=== PATIENT | male | born 1950 | race Caucasian/White ===

== ENCOUNTER 2018-03-15 10:27 | Observation (INO) | payer MEDICARE, OTHER ==
[2018-03-15] MEDS: ASPIRIN 325 MG TAB PO (10:57)
[2018-03-15 11:03] LABS: ADD MAN DIFF? NO
[2018-03-15 11:07] LABS: WHITE BLOOD COUNT 8.9 10^3/ul (4.8-10.8)
[2018-03-15 11:07] LABS: ABNORMAL IP MESSAGE 1; BASOPHIL # 0.1 10^3/ul (0.0-0.1); BASOPHILS % 0.6 % (0.0-2.0); EOSINOPHILS # 0.1 10^3/ul (0.0-0.5); EOSINOPHILS % 1.5 % (0.0-7.0); HEMATOCRIT 34.4 % (42.0-52.0); HEMOGLOBIN 9.9 g/dl (14.0-18.0); LYMPHOCYTES # 0.7 10^3/ul (0.8-2.9); LYMPHOCYTES % 8.1 % (15.0-51.0); MEAN CORPUSCULAR HEMOGLOBIN 21.9 pg (29.0-33.0); MEAN CORPUSCULAR HGB CONC 28.8 g/dl (32.0-37.0); MEAN CORPUSCULAR VOLUME 76.1 fl (82.0-101.0); MEAN PLATELET VOLUME 9.8 fl (7.4-10.4); MONOCYTE # 0.9 10^3/ul (0.3-0.9); NEUTROPHIL # 7.1 10^3/ul (1.6-7.5); NEUTROPHILS % 79.5 % (39.0-77.0); PLATELET COUNT 211 10^3/UL (140-415); POSITIVE DIFF @See below; RED BLOOD COUNT 4.52 10^6/ul (4.70-6.10)
[2018-03-15 11:09] LABS: ADD UMIC NO; UR ASCORBIC ACID NEGATIVE (NEGATIVE); UR BILIRUBIN (Dip) NEGATIVE (NEGATIVE); UR BLOOD (Dip) NEGATIVE (NEGATIVE); UR CLARITY CLEAR (CLEAR); UR COLOR STRAW (YELLOW); UR GLUCOSE (Dip) NEGATIVE (NEGATIVE); UR KETONES (Dip) NEGATIVE (NEGATIVE); UR LEUKOCYTE ESTERASE (Dip) NEGATIVE Leu/ul (NEGATIVE); UR NITRITE (Dip) NEGATIVE (NEGATIVE); UR SPECIFIC GRAVITY (Dip) 1.005 (1.003-1.030); UR TOTAL PROTEIN (Dip) NEGATIVE (NEGATIVE); UR UROBILINOGEN (Dip) NEGATIVE (NEGATIVE)
[2018-03-15 11:28] LABS: ALANINE AMINOTRANSFERASE 17 IU/L (13-69); ALBUMIN 3.9 g/dl (3.3-4.9); ALBUMIN/GLOBULIN RATIO 1.18; ALKALINE PHOSPHATASE 77 IU/L (42-121); AMYLASE 138 U/L (11-123); ANION GAP 16 (8-16); ASPARTATE AMINO TRANSFERASE 19 IU/L (15-46); BILIRUBIN,INDIRECT 1.5 mg/dl (0-1.1); BILIRUBIN,TOTAL 1.5 mg/dl (0.2-1.3); BLOOD UREA NITROGEN 23 mg/dl (7-20); CALCIUM 8.6 mg/dl (8.4-10.2); CARBON DIOXIDE 26 mmol/L (21-31); CHLORIDE 104 mmol/L (97-110); CREATINE KINASE 44 IU/L (23-200); CREATININE 1.87 mg/dl (0.61-1.24); GLUCOSE 103 mg/dl (70-220); LIPASE 105 U/L (23-300); POTASSIUM 4.2 mmol/L (3.5-5.1); PROTIME 14.4 Sec (11.9-14.9); PT RATIO 1.1; SODIUM 142 mmol/L (135-144); TOTAL PROTEIN 7.2 g/dl (6.1-8.1)
[2018-03-15 11:29] LABS: PARTIAL THROMBOPLASTIN TIME 39.8 Sec (25.0-35.0)
[2018-03-15 11:39] LABS: CK INDEX 1.7; CK-MB 0.76 ng/ml (0.0-2.4); TROPONIN-I 0.027 ng/ml (0.000-0.120)
[2018-03-15] MEDS ORDERED: HYDROCODONE/APAP (5/325) TAB PO (12:00)
[2018-03-15] MEDS ORDERED: NACL 0.9% 3 ML SYG IV (12:00)
[2018-03-15] MEDS ORDERED: DOCUSATE SODIUM 100 MG CAP PO (12:00)
[2018-03-15] MEDS ORDERED: BISACODYL (EC) 5 MG TAB PO (12:00)
[2018-03-15] MEDS ORDERED: ONDANSETRON 4 MG INJ IV (12:00)
[2018-03-15] MEDS ORDERED: ACETAMINOPHEN 325 MG TAB PO (12:00)
[2018-03-15] MEDS ORDERED: ACETAMINOPHEN 500 MG PO (12:00)
[2018-03-15] MEDS ORDERED: MAGNESIUM HYDROXIDE 30ML CUP PO (12:00)
[2018-03-15] MEDS: IPRATROPIUM (NEB) 0.5 MG/2.5 ML AMP NEB (12:26)
[2018-03-15] MEDS: ALBUTEROL 0.083% (NEB) 2.5 MG/3 ML AMP NEB (12:26)
[2018-03-15 12:46] LABS: B-TYPE NATRIURETIC PEPTIDE 8370 PG/ML (0-125)
[2018-03-15] MEDS: FUROSEMIDE 40 MG INJ IV (12:47)
[2018-03-15] MEDS: ACETAMINOPHEN 325 MG TAB PO (16:26)
[2018-03-15] MEDS: BUMETANIDE 1 MG INJ IV (17:36)
[2018-03-15 19:57] LABS: CREATINE KINASE 40 IU/L (23-200)
[2018-03-15] MEDS: morphine 2 MG INJ IV (20:07)
[2018-03-15] MEDS: ATORVASTATIN 40 MG TAB PO (20:07)
[2018-03-15 20:08] LABS: CK INDEX 1.9; CK-MB 0.75 ng/ml (0.0-2.4)
[2018-03-15 23:22] LABS: CREATINE KINASE 37 IU/L (23-200)
[2018-03-15 23:34] LABS: CK-MB 0.75 ng/ml (0.0-2.4); TROPONIN-I 0.025 ng/ml (0.000-0.120)
[2018-03-16] MEDS: BUMETANIDE 1 MG INJ IV (05:31)
[2018-03-16] MEDS: PANTOPRAZOLE (EC) 40 MG TAB PO (05:31)
[2018-03-16 05:51] LABS: ADD MAN DIFF? NO
[2018-03-16 05:54] LABS: WHITE BLOOD COUNT 6.3 10^3/ul (4.8-10.8)
[2018-03-16 05:54] LABS: ABNORMAL IP MESSAGE 1; BASOPHIL # 0.1 10^3/ul (0.0-0.1); BASOPHILS % 0.8 % (0.0-2.0); EOSINOPHILS # 0.2 10^3/ul (0.0-0.5); EOSINOPHILS % 2.5 % (0.0-7.0); HEMATOCRIT 34.5 % (42.0-52.0); HEMOGLOBIN 9.9 g/dl (14.0-18.0); LYMPHOCYTES # 0.8 10^3/ul (0.8-2.9); LYMPHOCYTES % 12.7 % (15.0-51.0); MEAN CORPUSCULAR HEMOGLOBIN 21.7 pg (29.0-33.0); MEAN CORPUSCULAR HGB CONC 28.7 g/dl (32.0-37.0); MEAN CORPUSCULAR VOLUME 75.7 fl (82.0-101.0); MEAN PLATELET VOLUME 9.7 fl (7.4-10.4); MONOCYTE # 0.7 10^3/ul (0.3-0.9); MONOCYTES % 10.9 % (0.0-11.0); NEUTROPHIL # 4.6 10^3/ul (1.6-7.5); NEUTROPHILS % 72.9 % (39.0-77.0); PLATELET COUNT 191 10^3/UL (140-415); POSITIVE DIFF @See below; RED BLOOD COUNT 4.56 10^6/ul (4.70-6.10); RED CELL DISTRIBUTION WIDTH 17.3 % (11.5-14.5)
[2018-03-16 06:23] LABS: ANION GAP 13 (8-16); BLOOD UREA NITROGEN 23 mg/dl (7-20); CALCIUM 8.3 mg/dl (8.4-10.2); CARBON DIOXIDE 29 mmol/L (21-31); CHLORIDE 102 mmol/L (97-110); CHOLESTEROL 152 mg/dl (100-200); CREATININE 1.69 mg/dl (0.61-1.24); GLUCOSE 95 mg/dl (70-220); HDL CHOLESTEROL 25 mg/dl (30-78); LDL CHOLESTEROL,CALCULATED 111 mg/dl; MAGNESIUM 2.1 mg/dl (1.7-2.5); SODIUM 140 mmol/L (135-144); TRIGLYCERIDES 79 mg/dl (0-149)
[2018-03-16 08:26] LABS: HEMOGLOBIN A1C 6.1 % (0-5.9)
[2018-03-16] MEDS ORDERED: BUMETANIDE 1 MG TAB PO (09:00)
[2018-03-16] MEDS: ACETAMINOPHEN 325 MG TAB PO (10:11)
[2018-03-16] MEDS: ASPIRIN 81 MG TAB PO (10:12)
[2018-03-16] MEDS: GABAPENTIN 300 MG CAP PO (10:13)
[2018-03-16] MEDS: ISOSORBIDE MONONITRATE(SR)60 MG TAB PO (10:14)
[2018-03-16] MEDS: DUTASTERIDE 0.5 MG CAP PO (10:19)
[2018-03-16] MEDS: ENOXAPARIN 40 MG/0.4 ML SYG SC (10:19)
[2018-03-16] MEDS: LOSARTAN 50 MG TAB PO (13:19)
== END 2018-03-16 16:28 | disposition home or self-care (01) ==
LOC: E/R 10:27 → MS1 03-16 16:06 → MS3 03-16 16:21
PROVIDERS: Internal Medicine
DX: I50.23 Acute on chronic systolic (congestive) heart failure (principal); I25.10 Atherosclerotic heart disease of native coronary artery without angina pectoris; Z95.1 Presence of aortocoronary bypass graft; N18.9 Chronic kidney disease, unspecified
CPT/HCPCS: 36415; 71045; 76775; 80048; 80053; 80061; 81003; 82150; 82550; 82553; 83036; 83690; 83735; 83880; 84484; 85025; 85610; 85730; 87040; 87086; 93005; 94664; 99285-25

== ENCOUNTER 2018-04-05 21:49 | Observation (INO) | payer MEDICARE, OTHER ==
[2018-04-05 22:44] LABS: ADD MAN DIFF? NO
[2018-04-05 22:46] LABS: ABNORMAL IP MESSAGE 1; BASOPHIL # 0.1 10^3/ul (0.0-0.1); BASOPHILS % 1.1 % (0.0-2.0); EOSINOPHILS # 0.2 10^3/ul (0.0-0.5); EOSINOPHILS % 4.1 % (0.0-7.0); HEMATOCRIT 32.3 % (42.0-52.0); HEMOGLOBIN 9.2 g/dl (14.0-18.0); LYMPHOCYTES % 17.7 % (15.0-51.0); MEAN CORPUSCULAR HEMOGLOBIN 21.4 pg (29.0-33.0); MEAN CORPUSCULAR HGB CONC 28.5 g/dl (32.0-37.0); MEAN CORPUSCULAR VOLUME 75.1 fl (82.0-101.0); MEAN PLATELET VOLUME 9.6 fl (7.4-10.4); MONOCYTE # 0.7 10^3/ul (0.3-0.9); MONOCYTES % 12.3 % (0.0-11.0); NEUTROPHIL # 3.6 10^3/ul (1.6-7.5); NEUTROPHILS % 64.4 % (39.0-77.0); PLATELET COUNT 238 10^3/UL (140-415); POSITIVE DIFF @See below; RED CELL DISTRIBUTION WIDTH 17.2 % (11.5-14.5)
[2018-04-05 22:46] LABS: WHITE BLOOD COUNT 5.6 10^3/ul (4.8-10.8)
[2018-04-05 23:11] LABS: ANION GAP 12 (8-16); BLOOD UREA NITROGEN 21 mg/dl (7-20); CALCIUM 8.4 mg/dl (8.4-10.2); CARBON DIOXIDE 30 mmol/L (21-31); CHLORIDE 102 mmol/L (97-110); CREATININE 2.13 mg/dl (0.61-1.24); GLUCOSE 114 mg/dl (70-220); MAGNESIUM 2.2 mg/dl (1.7-2.5); SODIUM 140 mmol/L (135-144)
[2018-04-05 23:22] LABS: B-TYPE NATRIURETIC PEPTIDE 3860 PG/ML (0-125); TROPONIN-I 0.018 ng/ml (0.000-0.120)
[2018-04-06] MEDS: FUROSEMIDE 40 MG INJ IV (00:19)
[2018-04-06] MEDS ORDERED: ALBUTEROL/IPRATROPIUM (NEB) 3 ML AMP HHN (01:00)
[2018-04-06] MEDS ORDERED: NACL 0.9% 3 ML SYG IV (01:00)
[2018-04-06] MEDS ORDERED: ACETAMINOPHEN 325 MG TAB PO (01:00)
[2018-04-06] MEDS ORDERED: ONDANSETRON 4 MG INJ IV (01:00)
[2018-04-06] MEDS: NITROGLYCERIN (SL) 0.4 MG TAB SL ×3 (01:04→01:23)
[2018-04-06] MEDS: ZOLPIDEM 5 MG TAB PO (01:48)
[2018-04-06] MEDS: PANTOPRAZOLE (EC) 40 MG TAB PO ×2 (05:33→05:40)
[2018-04-06] MEDS: FUROSEMIDE 40 MG TAB PO ×2 (05:33→05:40)
[2018-04-06 06:55] LABS: ADD MAN DIFF? NO
[2018-04-06 07:01] LABS: ABNORMAL IP MESSAGE 1; BASOPHIL # 0.1 10^3/ul (0.0-0.1); BASOPHILS % 0.9 % (0.0-2.0); EOSINOPHILS # 0.3 10^3/ul (0.0-0.5); EOSINOPHILS % 4.6 % (0.0-7.0); HEMATOCRIT 33.6 % (42.0-52.0); HEMOGLOBIN 9.6 g/dl (14.0-18.0); LYMPHOCYTES # 0.9 10^3/ul (0.8-2.9); LYMPHOCYTES % 16.1 % (15.0-51.0); MEAN CORPUSCULAR HEMOGLOBIN 21.7 pg (29.0-33.0); MEAN CORPUSCULAR HGB CONC 28.6 g/dl (32.0-37.0); MEAN PLATELET VOLUME 9.5 fl (7.4-10.4); MONOCYTE # 0.6 10^3/ul (0.3-0.9); MONOCYTES % 11.5 % (0.0-11.0); NEUTROPHIL # 3.6 10^3/ul (1.6-7.5); NEUTROPHILS % 66.3 % (39.0-77.0); PLATELET COUNT 211 10^3/UL (140-415); POSITIVE DIFF @See below; RED BLOOD COUNT 4.42 10^6/ul (4.70-6.10); RED CELL DISTRIBUTION WIDTH 17.4 % (11.5-14.5)
[2018-04-06 07:01] LABS: WHITE BLOOD COUNT 5.4 10^3/ul (4.8-10.8)
[2018-04-06 07:25] LABS: CREATINE KINASE 46 IU/L (23-200)
[2018-04-06 07:36] LABS: CK INDEX 1.5; TROPONIN-I 0.027 ng/ml (0.000-0.120)
[2018-04-06 07:39] LABS: ALANINE AMINOTRANSFERASE 22 IU/L (13-69); ALBUMIN 3.6 g/dl (3.3-4.9); ALBUMIN/GLOBULIN RATIO 1.16; ALKALINE PHOSPHATASE 93 IU/L (42-121); ANION GAP 13 (8-16); ASPARTATE AMINO TRANSFERASE 17 IU/L (15-46); BLOOD UREA NITROGEN 23 mg/dl (7-20); CALCIUM 8.3 mg/dl (8.4-10.2); CARBON DIOXIDE 29 mmol/L (21-31); CHLORIDE 105 mmol/L (97-110); CREATININE 2.13 mg/dl (0.61-1.24); GLUCOSE 105 mg/dl (70-220); MAGNESIUM 2.2 mg/dl (1.7-2.5); POTASSIUM 4.2 mmol/L (3.5-5.1); SODIUM 143 mmol/L (135-144); TOTAL PROTEIN 6.7 g/dl (6.1-8.1)
[2018-04-06] MEDS: GABAPENTIN 300 MG CAP PO (08:13)
[2018-04-06] MEDS: ISOSORBIDE MONONITRATE(SR)60 MG TAB PO (08:14)
[2018-04-06] MEDS: ASPIRIN (EC) 81 MG TAB PO (08:14)
[2018-04-06] MEDS: LOSARTAN 50 MG TAB PO (08:15)
[2018-04-06] MEDS: DUTASTERIDE 0.5 MG CAP PO (08:16)
[2018-04-06] MEDS: HEPARIN 5,000 UNIT/0.5 ML VIAL SC (08:18)
[2018-04-06] MEDS ORDERED: NON-FORMULARY/PATIENT OWN MED (Omeprazole* 20 MG) PO (09:00)
[2018-04-06] MEDS ORDERED: NON-FORMULARY/PATIENT OWN MED (Isosorbide Mononitrate* 60 MG) PO (09:00)
[2018-04-06] MEDS ORDERED: NON-FORMULARY/PATIENT OWN MED (Carvedilol* 6.25 MG) PO (09:00)
[2018-04-06] MEDS ORDERED: ATORVASTATIN 40 MG TAB PO (21:00)
== END 2018-04-06 10:10 | disposition left against medical advice (07) ==
LOC: TEL 23:34 → E/R 21:49
DX: R07.9 Chest pain, unspecified (principal); I25.10 Atherosclerotic heart disease of native coronary artery without angina pectoris; Z95.1 Presence of aortocoronary bypass graft; Z95.5 Presence of coronary angioplasty implant and graft; I42.9 Cardiomyopathy, unspecified; N18.9 Chronic kidney disease, unspecified; D50.9 Iron deficiency anemia, unspecified; N40.0 Benign prostatic hyperplasia without lower urinary tract symptoms
CPT/HCPCS: 36415; 71045; 80048; 80053; 82550; 82553; 83735; 83880; 84484; 85025; 93005; 99285-25; G0378

== ENCOUNTER 2018-10-13 09:09 | Emergency (ER) | payer MEDICARE, OTHER ==
[2018-10-13] MEDS: FUROSEMIDE 100 MG INJ IV (09:51)
[2018-10-13 10:08] LABS: ADD MAN DIFF? NO
[2018-10-13 10:10] LABS: ABNORMAL IP MESSAGE 1; BASOPHILS % 0.4 % (0.0-2.0); EOSINOPHILS # 0.1 10^3/ul (0.0-0.5); EOSINOPHILS % 0.5 % (0.0-7.0); HEMATOCRIT 44.1 % (42.0-52.0); HEMOGLOBIN 13.6 g/dl (14.0-18.0); LYMPHOCYTES # 0.5 10^3/ul (0.8-2.9); LYMPHOCYTES % 4.8 % (15.0-51.0); MEAN CORPUSCULAR HEMOGLOBIN 25.1 pg (29.0-33.0); MEAN CORPUSCULAR HGB CONC 30.8 g/dl (32.0-37.0); MEAN CORPUSCULAR VOLUME 81.4 fl (82.0-101.0); NEUTROPHILS % 83.8 % (39.0-77.0); PLATELET COUNT 194 10^3/UL (140-415); POSITIVE DIFF @See below; RED BLOOD COUNT 5.42 10^6/ul (4.70-6.10)
[2018-10-13 10:10] LABS: WHITE BLOOD COUNT 9.6 10^3/ul (4.8-10.8)
[2018-10-13] MEDS: ASPIRIN 325 MG TAB PO (10:10)
[2018-10-13] MEDS: ACETAMINOPHEN 325 MG TAB PO (10:10)
[2018-10-13] MEDS: NITROGLYCERIN 2% 1 GM OINT PKT TD (10:11)
[2018-10-13 10:16] LABS: ALANINE AMINOTRANSFERASE 27 IU/L (13-69); ALBUMIN 4.9 g/dl (3.3-4.9); ALBUMIN/GLOBULIN RATIO 1.13; ALKALINE PHOSPHATASE 89 IU/L (42-121); ANION GAP 14 (5-13); ASPARTATE AMINO TRANSFERASE 27 IU/L (15-46); BILIRUBIN,INDIRECT 1.2 mg/dl (0-1.1); BILIRUBIN,TOTAL 1.2 mg/dl (0.2-1.3); BLOOD UREA NITROGEN 20 mg/dl (7-20); CALCIUM 9.8 mg/dl (8.4-10.2); CARBON DIOXIDE 31 mmol/L (21-31); CHLORIDE 100 mmol/L (97-110); CREATININE 1.95 mg/dl (0.61-1.24); Estimated GFR 35 mL/min (>60); GLUCOSE 93 mg/dl (70-220); SODIUM 145 mmol/L (135-144); TOTAL PROTEIN 9.2 g/dl (6.1-8.1)
[2018-10-13 10:29] LABS: B-TYPE NATRIURETIC PEPTIDE 6740 PG/ML (0-125); TROPONIN-I 0.024 ng/ml (0.000-0.120)
[2018-10-13] MEDS: ALBUTEROL 0.5% (NEB) 2.5 MG/0.5 ML AMP INH (10:33)
[2018-10-13 10:38] LABS: ADD UMIC YES; UR ASCORBIC ACID NEGATIVE (NEGATIVE); UR BILIRUBIN (Dip) NEGATIVE (NEGATIVE); UR BLOOD (Dip) 1+ mg/dL (NEGATIVE); UR CLARITY CLEAR (CLEAR); UR COLOR STRAW (YELLOW); UR GLUCOSE (Dip) NEGATIVE (NEGATIVE); UR KETONES (Dip) NEGATIVE (NEGATIVE); UR LEUKOCYTE ESTERASE (Dip) NEGATIVE Leu/ul (NEGATIVE); UR NITRITE (Dip) NEGATIVE (NEGATIVE); UR RBC 3 /HPF (0-5); UR SPECIFIC GRAVITY (Dip) 1.005 (1.003-1.030); UR TOTAL PROTEIN (Dip) NEGATIVE (NEGATIVE); UR UROBILINOGEN (Dip) NEGATIVE (NEGATIVE); UR WBC 0 /HPF (0-5)
== END 2018-10-13 12:00 | disposition home or self-care (01) ==
LOC: E/R 09:09
DX: R06.02 Shortness of breath (principal); I50.42 Chronic combined systolic (congestive) and diastolic (congestive) heart failure; I25.10 Atherosclerotic heart disease of native coronary artery without angina pectoris; I13.0 Hypertensive heart and chronic kidney disease with heart failure and stage 1 through stage 4 chronic kidney disease, or unspecified chronic kidney disease; N18.9 Chronic kidney disease, unspecified; Z79.82 Long term (current) use of aspirin; Z95.0 Presence of cardiac pacemaker; Z95.1 Presence of aortocoronary bypass graft
CPT/HCPCS: 36415; 71045; 80053; 81001; 83880; 84484; 85025; 93005; 94644; 99285-25

== ENCOUNTER 2019-02-18 20:34 | Emergency (ER) | payer MEDICARE, OTHER ==
[2019-02-18 21:06] LABS: ADD MAN DIFF? NO
[2019-02-18 21:08] LABS: WHITE BLOOD COUNT 9.5 10^3/ul (4.8-10.8)
[2019-02-18 21:08] LABS: BASOPHILS % 0.4 % (0.0-2.0); EOSINOPHILS # 0.3 10^3/ul (0.0-0.5); EOSINOPHILS % 2.6 % (0.0-7.0); HEMATOCRIT 35.8 % (42.0-52.0); HEMOGLOBIN 10.8 g/dl (14.0-18.0); LYMPHOCYTES # 0.9 10^3/ul (0.8-2.9); MEAN CORPUSCULAR HEMOGLOBIN 24.2 pg (29.0-33.0); MEAN CORPUSCULAR HGB CONC 30.2 g/dl (32.0-37.0); MEAN CORPUSCULAR VOLUME 80.3 fl (82.0-101.0); MONOCYTE # 0.9 10^3/ul (0.3-0.9); MONOCYTES % 9.4 % (0.0-11.0); NEUTROPHIL # 7.4 10^3/ul (1.6-7.5); NEUTROPHILS % 78.1 % (39.0-77.0); PLATELET COUNT 242 10^3/UL (140-415); RED BLOOD COUNT 4.46 10^6/ul (4.70-6.10)
[2019-02-18 21:24] LABS: ANION GAP 10 (5-13); BLOOD UREA NITROGEN 17 mg/dl (7-20); CALCIUM 8.7 mg/dl (8.4-10.2); CARBON DIOXIDE 25 mmol/L (21-31); CHLORIDE 104 mmol/L (97-110); CREATININE 1.97 mg/dl (0.61-1.24); Estimated GFR 34 mL/min (>60); GLUCOSE 125 mg/dl (70-220); SODIUM 139 mmol/L (135-144)
[2019-02-18] MEDS: PROMETHAZINE/CODEINE 5ML CUP PO (21:24)
[2019-02-18 21:29] LABS: INR 1.05; PROTIME 13.8 Sec (11.9-14.9); PT RATIO 1.1
[2019-02-18 21:30] LABS: PARTIAL THROMBOPLASTIN TIME 46.2 Sec (23.0-35.0)
[2019-02-18 21:36] LABS: B-TYPE NATRIURETIC PEPTIDE 8380 PG/ML (0-125); TROPONIN-I 0.022 ng/ml (0.000-0.120)
== END 2019-02-18 22:55 | disposition home or self-care (01) ==
LOC: E/R 22:55
DX: R06.02 Shortness of breath (principal); I11.0 Hypertensive heart disease with heart failure; I50.9 Heart failure, unspecified; I25.10 Atherosclerotic heart disease of native coronary artery without angina pectoris; R05 Cough; Z79.82 Long term (current) use of aspirin; Z95.0 Presence of cardiac pacemaker; Z95.1 Presence of aortocoronary bypass graft
CPT/HCPCS: 36415; 71045; 80048; 83880; 84484; 85025; 85610; 85730; 93005; 99285-25